=== PATIENT | female | born 1955 | race Caucasian/White ===

== ENCOUNTER 2017-06-26 16:09 | Inpatient (IN) | payer BC ==
[2017-06-26] MEDS ORDERED: Lidocaine 2% VISCOUS* 15 ML UDC PO ONE (16:28)
[2017-06-26] MEDS ORDERED: Al Hydrox/Mg Hydrox/Simet LIQ* 30 ML UDC PO ONE (16:28)
[2017-06-26 16:54] LABS: ABS Basophils 0.1 10^3/ul (0-0.2); ABS Eosinophils 0.1 10^3/ul (0-0.6); ABS Lymphocytes 0.6 10^3/ul (1.0-4.8); ABS Monocytes 0.3 10^3/ul (0-0.8); ABS Neutrophils 4.2 10^3/ul (1.5-7.7); ABS Nucleated RBC 0 10^3/ul; Eosinophil % 2.4 % (0-6); Hematocrit 41 % (35-47); Hemoglobin 13.3 g/dl (12.0-16.0); Lymphocyte % 11.2 % (25-47); Mean Corpuscular HGB Conc 33 g/dl (31-36); Mean Corpuscular Hemoglobin 28 pg (27-31); Mean Corpuscular Volume 86 fL (80-97); Mean Platelet Volume 9 um3 (7.4-10.4); Nucleated Red Blood Cells % 0.1; Platelet Count 301 10^3/ul (150-450); Red Blood Count 4.71 10^6/ul (4.0-5.4); Red Cell Distribution Width 14 % (10.5-15); White Blood Count 5.4 10^3/ul (3.5-10.8)
--- NOTE | 2017-06-26 17:10 | RAD ---
INDICATION: Chest pain. COMPARISON: There are no prior studies available for comparison. TECHNIQUE: Dual-energy PA and lateral views of the chest were obtained. FINDINGS: The heart is within normal limits in size. The lungs are underinflated. There are small bibasilar infiltrates. No pleural effusion is seen. The patient appears to be status post left axillary node dissection. IMPRESSION: LOW LUNG VOLUMES, SMALL BIBASILAR INFILTRATES.
[2017-06-26 17:12] LABS: EGFR Non-African American 65.8 (>60)
[2017-06-26] MEDS ORDERED: Aspirin TAB* 325 MG PO ONE (17:30)
[2017-06-26] MEDS ORDERED: Insulin REGULAR(*) 1 UNITS UNIT SUBCUT ONE (17:30)
[2017-06-26] MEDS ORDERED: Acetaminophen TAB* 325 MG PO PRN (18:00)
[2017-06-26] MEDS ORDERED: Temazepam CAP* 15 MG PO PRN (18:00)
[2017-06-26] MEDS ORDERED: Morphine INJ* 2 MG/ML 1 ML CARPUJECT IV PRN (18:00)
[2017-06-26] MEDS ORDERED: Dextrose 50% Syringe 50 ML* 25 GM/50 ML SYRINGE IV PUSH PRN (18:03)
[2017-06-26] MEDS: NS 0.9% 1000 ML* 1,000 ML IV SCH (19:51)
[2017-06-26] MEDS: Insulin GLARGINE(*) 1 UNITS UNIT SUBCUT SCH (20:33)
[2017-06-26] MEDS: Insulin LISPRO* 1 UNITS UNIT SUBCUT SCH (20:34)
[2017-06-26] MEDS: Heparin VIAL(*) 5000 UNITS/ML VIAL (FIVE THOUSAND) SUBCUT SCH (20:35)
[2017-06-26] MEDS ORDERED: Tobramycin 0.3% OPHTH.OINT* 3.5 GM TUBE (OPTH OINTMENT) BOTH EYES SCH (21:00)
--- NOTE | 2017-06-26 21:41 | HP ---
ADDENDUM FOR MEDICATIONS NOW INCLUDED ON THIS REPORT CC: Dr. Rivero * HISTORY AND PHYSICAL: DATE OF ADMISSION: 06/26/17 PRIMARY CARE PROVIDER: Dr. Rivero from [facility]. CHIEF COMPLAINT: Chest pain. HISTORY OF PRESENT ILLNESS: Ms. Thomas is a 62-year-old female with history of diabetes and hypertension who was seen by Dr. Rivero today with complaints of chest pains that are exertional and had been going on for a couple of weeks. The patient also stated that she had not been able to fill her insulin and her oral hypoglycemics for the past 3 to 4 weeks. She just got to know from her insurance company that she needs to fill her medications at [facility] to be able to have them covered by the insurance. She stated that she will be able to fill those medications now, but she just got the letter today. The patient is going to be placed on overnight observation with the diagnosis of chest pain to rule out ischemia. PAST MEDICAL HISTORY: 1. History of bilateral breast cancer, status post lumpectomy, chemo and radiation with residual left-sided lymphedema in left upper and left lower extremity. 2. History of nephrolithiasis. 3. Status post appendectomy. 4. History of hypertension. ALLERGIES: The patient is allergic to PEANUTS. FAMILY HISTORY: Positive for mother who at the age of 79 secondary to heart disease, father who in his 70s secondary to heart disease. SOCIAL HISTORY: The patient denies any tobacco, alcohol or drug use. Surrogate decision making person is her brother, Antoine Thomas. 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 REVIEW OF SYSTEMS: Please see history of present illness. The patient stated that she has chronic left lymphedema on the left upper and left lower extremity ever since her breast surgery that had been ongoing for several years. She noticed dyspnea on exertion and substernal chest pain that she describes as "ache." Chest pain is not pleuritic and currently patient is chest pain free. The pain occurs only when she is walking or performs moderate exercise. The remaining 12 systems were reviewed with the patient and were otherwise negative. PHYSICAL EXAMINATION GENERAL: The patient is a very pleasant 62-year-old female with a BMI of 35. Patient is not in acute distress. Alert, awake, and oriented x3. VITAL SIGNS: Blood pressure 139/78, heart rate of 82 and regular, respiratory rate 18, oxygen saturation 98% on room air, temperature 98.2. HEENT: Head: Atraumatic and normocephalic. Eyes: Pupils are equal, round, and reactive to light and accommodation. Oropharynx clear. Mucosa moist. NECK: Supple. No JVD. No bruits bilaterally. RESPIRATORY: Clear to auscultation bilaterally. CARDIOVASCULAR: Regular rate and rhythm. No murmur. ABDOMEN: Soft, nontender. Bowel sounds present in all 4 quadrants. EXTREMITIES: There is bilateral leg edema, left definitely larger than right. It is pitting. There is no clubbing and no cyanosis. The left leg has also slight erythema on the anterior aspect of the distal lower extremity possibly related to venostasis and not cellulitis. The left hand is mildly edematous. NEUROLOGIC: Speech clear. Cranial nerves II through XII grossly intact. Motor strength is 5/5 bilaterally. SKIN: On evaluation of the skin, apart from the above mentioned, no rashes or ecchymotic areas noted. PSYCHIATRIC: On evaluation oriented x3 with no evidence of anxiety or depression. DIAGNOSTIC STUDIES/LAB DATA: Showed white blood cell count 5.4, hemoglobin 13.3, hematocrit 41, and platelets of 301. Sodium 133, potassium 4.4, chloride 98, carbon dioxide 28, BUN 13, creatinine 0.87. Liver function tests were unremarkable. There was mild elevation of alkaline phosphatase of 131. Troponin was 0.01. The patient's EKG showed sinus bradycardia with a heart rate of 46 beats per minute with negative T waves in lead III and AVF and no other abnormalities. The patient's portable chest x-ray showed impression: "Low lung volume. No evidence of any infiltrates." ASSESSMENT AND PLAN: 1. In regards to the patient's exertional chest pain, the patient is wanting to be placed for overnight observation with followup troponins. She is going to undergo cardiac stress test on a treadmill, Myoview, if her troponins continue to be negative. 2. In regards to the patient's uncontrolled diabetes, her hemoglobin A1c is going to be obtained. The patient is going to be placed on insulin sliding scale and low dose of insulin Lantus. The patient stated that she will be able to have her medications filled with [facility] from now on. I will also hold patient's metformin. I am not sure if she should be ever taking Actos with her history of heart disease in the family. 3. In regards to the possibility of dyslipidemia and evaluation for that, lipid profile is going to be obtained in the morning. 4. For DVT prophylaxis, the patient is going to be placed on heparin subcutaneously. 5. In regards to patient's chronic lymphedema in left lower extremity and left upper extremity, I recommended ASTRID compression stockings, which the patient tried in the past and stated that she could not tolerate it. 6. The patient's code status is full and her surrogate is her brother. TIME SPENT: Approximately 55 minutes was spent on admission of this patient, more than half of that time was spent [id number] with the patient during the interview and physical exam. ADDENDUM: Includes the patient's medication list at admission and those are: 1. Actos 45 mg daily. 2. Metformin 1000 mg b.i.d. 3. Lisinopril 20 mg daily. 4. Insulin Levemir 80 units in the morning and 20 at night. Please also note that the patient stated that her diabetic medications she has not used for the past 3 to 4 weeks. [id number]/CPS #: [id number]/CPS #: [id number] LAURA
[2017-06-27] MEDS: Heparin VIAL(*) 5000 UNITS/ML VIAL (FIVE THOUSAND) SUBCUT SCH ×2 (05:57→14:07)
[2017-06-27 06:29] LABS: ABS Basophils 0.1 10^3/ul (0-0.2); ABS Eosinophils 0.1 10^3/ul (0-0.6); ABS Lymphocytes 0.9 10^3/ul (1.0-4.8); ABS Monocytes 0.4 10^3/ul (0-0.8); ABS Neutrophils 2.7 10^3/ul (1.5-7.7); ABS Nucleated RBC 0 10^3/ul; Eosinophil % 3.4 % (0-6); Hematocrit 35 % (35-47); Hemoglobin 11.8 g/dl (12.0-16.0); Lymphocyte % 22.6 % (25-47); Mean Corpuscular HGB Conc 34 g/dl (31-36); Mean Corpuscular Hemoglobin 29 pg (27-31); Mean Corpuscular Volume 85 fL (80-97); Mean Platelet Volume 9 um3 (7.4-10.4); Nucleated Red Blood Cells % 0; Platelet Count 232 10^3/ul (150-450); Red Blood Count 4.11 10^6/ul (4.0-5.4); Red Cell Distribution Width 14 % (10.5-15); White Blood Count 4.2 10^3/ul (3.5-10.8)
[2017-06-27] MEDS: Insulin LISPRO* 1 UNITS UNIT SUBCUT SCH ×4 (07:21→21:43)
[2017-06-27] MEDS: Lisinopril TAB* 10 MG PO SCH (09:38)
[2017-06-27] MEDS: NS 0.9% 1000 ML* 1,000 ML IV SCH (09:39)
[2017-06-27] MEDS ORDERED: Metoprolol Tartrate IV* 1 MG/ML 5 ML VIAL ONE (11:08)
--- NOTE | 2017-06-27 12:44 | RAD ---
HISTORY: Chest pain, diabetes, hypertension COMPARISONS: None TECHNIQUE: A 1 day stress/rest myocardial perfusion study was performed, with exercise stress. The exercise portion was performed using the Yobani protocol, for a total METs of 4.6. The exercise portion was stopped due to sustained wide complex tachycardia. The stress portion was monitored by Dr. Nolasco. Gated SPECT imaging was performed, with CT-based attenuation correction DOSE: Stress: Technetium 99m tetrofosmin, 26.38 millicuries, injected at 11:07 AM on June 27, 2017 Rest: Technetium 99m tetrofosmin, 10.98 millicuries, injected at 8:46 AM on June 27, 2017 Pharmacologic agent: None FINDINGS: CARDIAC MONITORING: Peak heart rate of 219 bpm, 189% of predicted EF: 63% TID: 1.17 MOTION: There is mild dyskinesia. PERFUSION: There are no fixed or reversible perfusion defects. OTHER: None IMPRESSION: NO DEFINITE FIXED OR REVERSIBLE PERFUSION DEFECTS. ASSESSMENT: LOW RISK. Based on imaging criteria from ACC/AHA 2002. Guideline Update for the Management of Patient's with Chronic Stable Angina, table 23. Noninvasive Risk Stratification. CPT II Codes: 0711B8P
--- NOTE | 2017-06-27 16:15 | PN ---
Subjective Date of Service: 06/27/17 Interval History: Pt had a stress test and got in a. fib with RVR and wide complex tachycardia that as per Dr. Nolasco is likely a. fib with aberrancy now back in NSR, feels well, denies CP Objective Active Medications: Acetaminophen (Tylenol Tab*) 650 mg PO Q4H PRN PRN Reason: FEVER/PAIN Dextrose (D50w Syringe 50 Ml*) 12.5 gm IV PUSH .FOR FS < 60 - SS PRN PRN Reason: FS < 60 Heparin Sodium (Porcine) (Heparin Vial(*)) 5,000 units SUBCUT Q8HR [facility] Last Admin: 06/27/17 14:07 Dose: 5,000 units Sodium Chloride (Ns 0.9% 1000 Ml*) 1,000 mls @ 75 mls/hr IV PER RATE [facility] Last Admin: 06/27/17 09:39 Dose: 75 mls/hr Insulin Glargine (Lantus(*)) 30 units SUBCUT Q24H [facility] Last Admin: 06/26/17 20:33 Dose: 30 units Insulin Human Lispro (Humalog*) 0 units SUBCUT ACHS [facility] PRN Reason: Protocol Last Admin: 06/27/17 12:34 Dose: Not Given Lisinopril (Prinivil Tab*) 20 mg PO DAILY [facility] Last Admin: 06/27/17 09:38 Dose: 20 mg Metoprolol Tartrate (Lopressor Tab*) 12.5 mg PO Q12HR [facility] Morphine Sulfate (Morphine Inj (Syringe)*) 2 mg IV Q4H PRN PRN Reason: PAIN Temazepam (Restoril Cap*) 15 mg PO BEDTIME PRN PRN Reason: INSOMNIA Oxygen Devices in Use Now: None Appearance: 62 yo f in NAD, AAOx3 Eyes: No Scleral Icterus, PERRLA Ears/Nose/Mouth/Throat: NL Teeth, Lips, Gums, Mucous Membranes Moist Neck: NL Appearance and Movements; NL JVP, Trachea Midline Respiratory: Symmetrical Chest Expansion and Respiratory Effort, Clear to Auscultation Cardiovascular: NL Sounds; No Murmurs; No JVD, RRR Abdominal: NL Sounds; No Tenderness; No Distention, No Hepatosplenomegaly Lymphatic: No Cervical Adenopathy Extremities: No Edema, No Clubbing, Cyanosis Skin: No Rash or Ulcers, No Nodules or Sclerosis Neurological: Alert and Oriented x 3, NL Muscle Strength and Tone Result Diagrams: 06/27/17 06:10 06/27/17 06:10 Assess/Plan/Problems-Billing Assessment: 62 yo F with h/o HTN, DM2 presents with exertional CP - Patient Problems (1) Chest pain Comment: alvin related to A. fib which was noted during exercise today. Appreciate Dr. Nolasco's consult. will place pt on low dose lopressor and tritrate stress test "low risk" (2) Wide-complex tachycardia Comment: Dr. Nolasco discussed the case with EP specialit who noted that alvin pt has a. fib with abberancy. cont telem Pt aslo has episodes of sinus bradycardia with PAC's (3) DM2 (diabetes mellitus, type 2) Comment: cont Lantus and ISS HbA1C 9-due to noncompliance in the past month (4) DVT prophylaxis Comment: Pt agreed to Xarelto for antocoagulation(CHADS Vasc2 score is 3) Status and Disposition: OBV will be switched to inpatient due to need to hospitalization x at least another day
[2017-06-27] MEDS ORDERED: Perflutren Lipid Microsphere* 3 ML VIAL ONE (16:51)
[2017-06-27] MEDS: Rivaroxaban TAB(*) 20 MG TAB PO SCH (17:35)
--- NOTE | 2017-06-27 18:33 | CONS ---
CC: Dr. Rivero, [place], [place] * CARDIOLOGY CONSULTATION: DATE OF CONSULT: 06/27/17 REASON FOR CONSULT: The patient with history of exertional chest discomfort with abnormal stress test, development of wide complex tachycardia/atrial fibrillation, assess cardiac status. HISTORY OF PRESENT ILLNESS: The patient is a pleasant 62-year-old female with a history of diabetes and hypertension, who states that over the past several weeks she has noted that when she would exert herself more than usual, generally when at work and walking very fast, she will develop a weird sensation feeling where she gets woozy and then will notice perhaps mild chest pressure. She clearly states the wooziness comes on first before the chest discomfort. There is no profound shortness of breath, nausea, vomiting, or diaphoresis. She has not had any syncopal or near syncopal episode with it. What she does is slow down and eventually over time it goes away. It has never happened at rest. She was admitted to the hospital with these symptoms and interestingly she states that she was concerned whether or not it could have been precipitated by her not having her diabetes medication because of insurance switch. She was taking her hypertension medication. She denies any history of underlying lung disease, but does admit she snores significantly; she has no way of knowing whether or not she has any sleep apnea. Her cardiac risk factors include essential hypertension as well as diabetes mellitus. She does not smoke. She has no family history of early coronary artery disease, but later in life, had a mother who at 79 and a father who in the 70s. She denies any known history of increased cholesterol. PAST MEDICAL HISTORY: Includes bilateral breast cancer, status post lumpectomy , chemotherapy and radiation with residual left-sided lymphedema in the left upper and lower extremity; history of nephrolithiasis; history of appendectomy; history of hypertension; history of diabetes. ALLERGIES: She is allergic to PEANUTS. SOCIAL HISTORY: She denies any tobacco, alcohol, or drug usage. She works at [employer] in the [employer] department. REVIEW OF SYSTEMS: As per the H and P with no additional changes. Exercise stress test performed today. She was exercised by standard Yobani protocol only to 1 minute and 19 seconds achieving 4 METs at which point she developed wide- complex tachycardia with heart rates in the 180s. It was interesting in that it intermittently without any slowing or pause would develop narrow complex as well. The EKG looked like a left bundle branch pattern when she was tachycardic with wide complex. On stopping and with eventual converting to normal sinus rhythm, she had no EKG changes definitive for ischemia throughout the recovery period. Nuclear images were read with no significant ischemia with normal ejection fraction. Interestingly, when she had the sustained tachycardia, and into recovery for a period of time, she denied any significant wooziness or lightheadedness or chest discomfort. PHYSICAL EXAM: When I see her, reveals pleasant female. Blood pressure 133/67 with a pulse of 67 and regular, respirations 16, O2 saturation 97% on room air, afebrile. Neck is supple. No increased JVP. Carotid with good upstroke and volume without bruits. Conjunctivae are pink. Sclerae are clear. Mouth reveals moist mucosa. Lungs revealed no accessory muscle usage. There is good excursion. Lungs are relatively clear to A and P. Heart reveals no visible heaves, no palpable heaves or thrills. Normal S1, S2. Heart sounds are distant in nature due to left chest size. Abdomen is obese, soft, nontender, without definitive organomegaly. Extremities are heavy in nature bilaterally. There is left lymphedema noted in the upper arm. Peripheral pulses are intact. Femoral pulses noted without bruits. Neuro: The patient is alert and oriented with normal mentation. Musculoskeletal: The patient moves all extremities appropriate and had a normal gait on the stress test. Psychological : The patient with normal affect. DIAGNOSTIC STUDIES/LAB DATA: Laboratory results today revealed admission BUN and creatinine of 13 and 0.8 with potassium of 4.4, glucose was 399. Her hemoglobin A1c was 9.0. SGOT 12, SGPT 17, alkaline phosphatase 131. Troponin was 0.01, 0.00, 0.00 respectively. Total cholesterol was 131, LDL 63, HDL 48, triglycerides 97. Hemoglobin and hematocrit on admission were 13.3 and 41 with a platelet count of 301,000, white count 5400. Chest x-ray report on admission revealed low volume lung, possible small basilar infiltrates versus poor inspiratory effort. EKG on admission on 06/26/17 revealed sinus bradycardia, heart rate 46. A question of potential atrial bigeminy is raised on this EKG, which indeed would then not make the heart rate as bradycardic. There are no acute ST-T wave changes. OVERALL ASSESSMENT: Cristina now presents with exercise-induced arrhythmias. I had a discussion with Dr. Aly Kelsey regarding this and at this point time, we will try low-dose beta mikki increasing it as tolerates. We will also do a pulse ox overnight test on her to see if she has sleep apnea. We will get a 2D echo as well. Ideally, if we can titrate beta mikki up hopefully, we can avoid having to try to do ablation therapy on her. I will also order a TSH on her for completion sake. We will await the echocardiogram results. Thank you very much for allowing us to participate in her care. [id number]/[facility] #: [id number] LAURA
--- NOTE | 2017-06-27 19:07 | ECHO ---
Patient: ALIYAH NAVARRO [facility] Rec#: [id number] : 1955 Date: 06/27/2017 Age: 62y Height: 160.02 cm / 63.0 in Weight: 89.36 kg / 196.9 lbs Sex: F BSA: 1.92 Room#: [facility] Admit Date#: 06/27/2017 Type: Inpatient Referring: Adele Millan MD Reading: Sarah Hawley MD Mangle Roller: Elinor MoyerDANIELLE Transthoracic Echocardiogram Indication: Chest pain, new A-fib BP: 133/67 HR: 44 Rhythm: Bradycardia Findings History: HTN, DM, bilateral breast cancer with chemotherapy and radiation. Technical Comments: The study quality is fair. The study is technically limited due to poor parasternal windows. Completed at 1745. Left Ventricle: The left ventricular chamber size is normal. Mild concentric left ventricular hypertrophy is observed. Global left ventricular wall motion and contractility are within normal limits. There is normal left ventricular systolic function. The estimated ejection fraction is 55-60%. Normal left ventricular diastolic filling is observed. Left Atrium: The left atrium is mildly dilated. Right Ventricle: The right ventricle is mildly dilated. The right ventricular global systolic function is normal. Right Atrium: The right atrium is moderately dilated. Aortic Valve: The aortic valve is trileaflet. The aortic valve leaflets are mildly thickened. There is a trace of aortic regurgitation. There is no evidence of aortic stenosis. Mitral Valve: There is posterior mitral annular calcification. The mitral valve leaflets are mildly thickened. There is a trace of mitral regurgitation. There is no evidence of mitral stenosis. Tricuspid Valve: The tricuspid valve leaflets are normal. There is mild tricuspid regurgitation. The right ventricular systolic pressure is estimated at 44 mmHg. There is evidence of mild to moderate pulmonary hypertension. There is no tricuspid stenosis. Pulmonic Valve: The pulmonic valve appears normal. There is a trace pulmonic regurgitation. There is no pulmonic stenosis. Pericardium: There is no significant pericardial effusion. A pericardial fat pad is visualized. Aorta: There is mild dilatation of the ascending aorta. There is no dilatation of the aortic arch. There is no dilation of the aortic root. Pulmonary Artery: The main pulmonary artery appears normal. Venous: The inferior vena cava is dilated. There is a greater than 50% respiratory change in the inferior vena cava dimension. Contrast: Definity was used to optimize study. 3 mL of diluted Definity was utilized. Intravenous contrast was used to enhance endocardial border definition. Summary: There was not any prior study for comparison. Conclusions The left ventricular chamber size is normal. Mild concentric left ventricular hypertrophy is observed. The estimated ejection fraction is 55-60%. The left atrium is mildly dilated. The right atrium is moderately dilated. There is a trace of aortic regurgitation. There is a trace of mitral regurgitation. There is mild tricuspid regurgitation. There is evidence of mild to moderate pulmonary hypertension. There is a trace pulmonic regurgitation. There is mild dilatation of the ascending aorta. Measurements Name Value Normal Range RVIDd (AP) 2D 3.3 cm (0.9 - 2.6) RVDdMajor (2D) 4.6 cm (2.2 - 4.4) RAd ISD 4CH 5.5 cm (3.4 - 4.9) RA (A4C)W 3.9 cm (2.9 - 4.6) IVSd (2D) 1.2 cm (0.6 - 1) LVPWd (2D) 1.1 cm (0.6 - 1) LVIDd (2D) 3.8 cm (3.6 - 5.4) LVIDs (2D) 2.3 cm - LV FS (2D) 41 % (25 - 45) Aortic Annulus 1.8 cm (1.4 - 2.6) Ao root diameter (2D) 3.4 cm (2.1 - 3.5) Ascending Ao 3.8 cm (2.1 - 3.4) Aortic arch 2.8 cm (1.8 - 3.4) LA dimension (AP) 2D 4 cm (2.3 - 3.8) LAd ISD 4CH 5.9 cm (2.9 - 5.3) LA ISD 4CH W 4.6 cm (2.5 - 4.5) Name Value Normal Range LA ESV SP 4CH (A/L) 71 ml - LA ESV SP 2CH (A/L) 74 ml - LA ESV BP (A/L) 73 ml - LA ESV BP (A/L) index 38 ml/m2 - LA ESV SP 4CH (MOD) 65 ml - LA ESV SP 2CH (MOD) 68 ml - Name Value Normal Range MV E-wave Vmax 1.4 m/sec - MV deceleration time 169.5 msec - MV A-wave Vmax 1.17 m/sec - MV E:A ratio 1.2 ratio - LV septal e' Vmax 0.13 m/sec - LV lateral e' Vmax 0.12 m/sec - LV E:e' septal ratio 10.77 ratio - LV E:e' lateral ratio 11.67 ratio - Name Value Normal Range AV Vmax 1.47 m/sec - AV VTI 27.5 cm - AV peak gradient 8.64 mmHg - AV mean gradient 4.51 mmHg - LVOT Vmax 1.11 m/sec - LVOT VTI 26.66 cm - LVOT peak gradient 4.97 mmHg - LVOT mean gradient 2.53 mmHg - COREY Vmax 1.07 m/sec - Name Value Normal Range TR Vmax 2.9 m/sec - TR peak gradient 34 mmHg - RAP 8 mmHg - RVSP 44 mmHg - IVC diameter 2.3 cm - Name Value Normal Range PV Vmax 1.02 m/sec - PV peak gradient 4.23 mmHg -
[2017-06-27] MEDS: Metoprolol Tartrate TAB* 25 MG PO SCH (19:35)
[2017-06-27] MEDS: Insulin GLARGINE(*) 1 UNITS UNIT SUBCUT SCH (19:36)
[2017-06-28] MEDS: NS 0.9% 1000 ML* 1,000 ML IV SCH ×2 (02:15→02:17)
[2017-06-28] MEDS: Insulin LISPRO* 1 UNITS UNIT SUBCUT SCH ×2 (07:17→12:40)
[2017-06-28] MEDS: Lisinopril TAB* 10 MG PO SCH (09:25)
[2017-06-28] MEDS: Rivaroxaban TAB(*) 20 MG TAB PO SCH (09:25)
[2017-06-28] MEDS: Metoprolol Tartrate TAB* 25 MG PO SCH (09:25)
[2017-06-28 14:15] VITALS: BP 134/69
--- NOTE | 2017-06-28 21:18 | HP ---
HISTORY AND PHYSICAL: ADDENDUM: Includes the patient's medication list at admission and those are: 1. Actos 45 mg daily. 2. Metformin 1000 mg b.i.d. 3. Lisinopril 20 mg daily. 4. Insulin Levemir 80 units in the morning and 20 at night. Please also note that the patient stated that her diabetic medications she has not used for the past 3 to 4 weeks. [id number]/[facility] #: [id number] [facility]
--- NOTE | 2017-06-29 11:53 | DS ---
CC: Dr. Rivero; Dr. Nolasco; Dr. Hawley * DISCHARGE SUMMARY: DATE OF ADMISSION: 06/26/17 DATE OF DISCHARGE: 06/28/17 PRIMARY CARE PROVIDER: Dr. Rivero. DISCHARGE DIAGNOSES: 1. Chest pain and lightheadedness while exercise due to paroxysmal atrial fibrillation. Please also note that the patient has history of atrial fibrillation with aberrancy that looks like ventricular tachycardia. 2. Uncontrolled diabetes. SECONDARY DIAGNOSES: 1. Hypertension. 2. Diabetes. 3. History of bilateral breast cancer, status post lumpectomy. 4. History of nephrolithiasis. 5. History of appendectomy. MEDICATIONS AT DISCHARGE: Include: 1. Insulin detemir 20 units at bedtime, 80 in the morning. 2. Lisinopril 20 mg daily. 3. Metformin 1000 mg b.i.d. 4. Metoprolol succinate 25 mg daily. 5. Actos 45 mg daily. 6. Xarelto 20 mg daily. LABORATORY DATA: Studied performed during the hospital stay include: On : White blood cell of 4.2, hemoglobin of 11.8, hematocrit of 35 and platelets 232. Sodium 137, potassium 3.9, chloride 105, carbon dioxide 26, BUN 12, creatinine 0.6. Liver function tests were unremarkable on admission apart form alkaline phosphatase of 131. Lipid profile showed triglycerides of 97, total cholesterol of 131, LDL of 63 and HDL of 48. TSH was 4.14. Cardiac stress test obtained on 06/27/17, the treadmill portion, conclusion, "development of tachycardic rhythm at times with wide QRS complexes sustained, probably atrial fibrillation with aberrancy, less likely ventricular tachycardia." The nuclear portion of the stress test showed "low risk with no definitive fixed or reversible perfusion defects with mild dyskinesia and EF of 63%." Overnight pulse oximetry showed time with oxygen saturation below 89% of 1 minute 28 seconds, it was 0.3%. CONSULTATIONS DURING THE HOSPITAL STAY: Included Dr. Nolasco and Dr. Hawley from Cardiology. HOSPITALIZATION COURSE: Cristina Thomas is a 62-year-old female with history of diabetes with recent noncompliance with treatment due to problems with medication coverage. The patient presented complaining of exertional chest pain and occasional episodes of feeling newly lightheaded when exercising. She was placed on observation initially and then placed on full admit. Her initial cardiac stress test showed no ischemia on the nuclear portion. The treadmill portion was performed by Dr. Nolasco and was noted that patient went into rapid atrial fibrillation, and also wide ventricular tachycardia. Dr. Nolasco discussed it with his colleague supervisor cutting and sewing room and confirmed that it is likely atrial fibrillation with aberrancy and not ventricular tachycardia. The recommendation was to place patient on beta mikki and observe. The patient was placed on metoprolol 12.5 mg b.i.d. and she did well. She had occasional episodes of sinus bradycardia, which she actually had even before starting the beta mikki, but those were asymptomatic. Prior to discharge, patient ambulated with no recurrence of atrial fibrillation or atrial fibrillation with aberrancy. She was in sinus tachycardia which was appropriate to the level of exercise. On the day of discharge, patient was seen by Dr. Hawley. The patient is going to be discharged on Toprol-XL at 25 mg daily. The patient was also educated on the need of anticoagulation due to CHADS-VASc score being at 3. After discussion about novel anticoagulants as well as Coumadin, the patient requested to be placed on one of the novel anticoagulants. Xarelto was started prior to discharge and she tolerated well. At discharge, the patient was recommended to follow up with primary care provider in approximately 4 to 7 days. The patient is also asked to called Dr. Nolasco's office and request followup appointment. PHYSICAL EXAMINATION: Blood pressure 125/67, heart rate of 74 and regular, respiratory rate 16, oxygen saturation 100% on room air, temperature 98.9. General: A very pleasant 62-year-old female with a BMI of 34. The patient is on acute distress. Alert and awake and oriented x3. HEENT: Head: Atraumatic , normocephalic. Eyes: Pupils equal, round, and reactive to light and accommodation. Oropharynx clear. Mucosa moist. Neck: Supple. No JVD. No bruits bilaterally. Cardiovascular: Regular rate and rhythm. No murmur. Respiratory: Clear to auscultation bilaterally. Abdomen: Soft, nontender. Bowel sounds presents in all 4 quadrants. Extremities: There is no edema. Pulses +2 bilaterally. There is no clubbing, cyanosis. Neuro Evaluation: Speech clear. Cranial nerves II through XII grossly intact. Motor strength is 5 /5 bilaterally. Please note that this is a short summary of patient's hospitalization. Please refer to further medical records for details. TIME SPENT: Approximately 40 minutes were spent on patient's discharge. [id number]/[facility] #: [id number] LAURA
--- NOTE | 2017-06-29 12:48 | ED ---
Maikol Mckee Stephanie, scribed for Devyn Cruz MD on 06/26/17 at 1728 . HPI Chest Pain - HPI Summary HPI Summary: The pt is a 62 y/o F presenting to the ED with c/o CP that began this morning. The pt reports intermittent CP with exertion over the past few weeks. The pt states the CP occurs with exertion. She saw her PCP today and her glucose was extremely elevated. - History of Current Complaint Chief Complaint: EDChestPainROMI Time Seen by Provider: 06/26/17 16:28 Hx Obtained From: Patient Onset/Duration: Started Hours Ago - 12, Resolved Timing: Intermittent - with exertion Current Severity: None Pain Intensity: 0 Pain Scale Used: 0-10 Numeric Chest Pain Location: Diffuse Chest Pain Radiates: No Aggravating Factor(s): Exertion Alleviating Factor(s): Nothing Associated Signs and Symptoms: Positive: Chest Pain - Allergy/Home Medications Allergies/Adverse Reactions: Allergies Allergy/AdvReac Type Severity Reaction Status Date / Time peanut Allergy Mild Hives Verified 06/26/17 21:15 Home Medications: Home Medications Insulin Detemir (NF) [Levemir (NF)] 20 unit SUBCUT BEDTIME 06/26/17 [History Confirmed 06/26/17] Insulin Detemir (NF) [Levemir (NF)] 80 unit SUBCUT QAM 06/26/17 [History Confirmed 06/26/17] Lisinopril TAB* [Prinivil TAB 10 MG*] 20 mg PO DAILY 06/26/17 [History Confirmed 06/26/17] Pioglitazone TAB* [Actos TAB*] 45 mg PO DAILY 06/26/17 [History Confirmed ] metFORMIN* [Glucophage 1000 MG TAB *] 1,000 mg PO BID 06/26/17 [History Confirmed 06/26/17] PMH/Surg Hx/FS Hx/Imm Hx Sensory History: Denies: Hx Legally Blind, Hx Deafness EENT History: Denies: Hx Deafness - Surgical History Surgery Procedure, Year, and Place: None Infectious Disease History: No Infectious Disease History: Denies: Traveled Outside the [place] in Last 30 Days - Family History Known Family History: Positive: Unknown - Pt denies any family history - Social History Occupation: Employed Part-time Lives: Alone Alcohol Use: None Review of Systems Negative: Fever, Chills Negative: Erythema Negative: Sore Throat Positive: Chest Pain - with exertion Negative: Shortness Of Breath, Cough Negative: Abdominal Pain, Vomiting, Nausea Negative: dysuria, hematuria Negative: Myalgia, Edema Negative: Rash Neurological: Other - Negative: Weakness All Other Systems Reviewed And Are Negative: Yes Physical Exam - Summary Physical Exam Summary: Constitutional: Well-developed, Well-nourished, Alert. (-) Distressed Skin: Warm, Dry HENT: Normocephalic; Atraumatic Eyes: Conjunctiva normal Neck: Musculoskeletal ROM normal neck. (-) JVD, (-) Stridor, (-) Tracheal deviation Cardio: Rhythm regular, rate normal, Heart sounds normal; Intact distal pulses; The pedal pulses are 2+ and symmetric. Radial pulses are 2+ and symmetric. (-) Murmur Pulmonary/Chest wall: Effort normal. (-) Respiratory distress, (-) Wheezes, (-) Rales Abd: Soft, (-) Tenderness, (-) Distension, (-) Guarding, (-) Rebound Musculoskeletal: (-) Edema Lymph: (-) Cervical adenopathy Neuro: Alert, Oriented x3 Psych: Mood and affect Normal Triage Information Reviewed: Yes Vital Signs On Initial Exam: Initial Vitals Temp Pulse Resp BP Pulse Ox 98.2 F 82 18 139/78 100 06/26/17 16:11 06/26/17 16:11 06/26/17 16:11 06/26/17 16:11 06/26/17 16:11 Vital Signs Reviewed: Yes Diagnostics - Vital Signs Vital Signs Temp Pulse Resp BP Pulse Ox 06/26/17 16:11 98.2 F 82 18 139/78 100 - Laboratory Lab Results: Lab Results 06/26/17 Range/Units 16:38 WBC 5.4 (3.5-10.8) 10^3/ul RBC 4.71 (4.0-5.4) 10^6/ul Hgb 13.3 (12.0-16.0) g/dl Hct 41 (35-47) % MCV 86 (80-97) fL MCH 28 (27-31) pg MCHC 33 (31-36) g/dl RDW 14 (10.5-15) % Plt Count 301 (150-450) 10^3/ul MPV 9 (7.4-10.4) um3 Neut % (Auto) 78.9 (38-83) % Lymph % (Auto) 11.2 L (25-47) % Stewart % (Auto) 6.3 (1-9) % Eos % (Auto) 2.4 (0-6) % Baso % (Auto) 1.2 (0-2) % Absolute Neuts (auto) 4.2 (1.5-7.7) 10^3/ul Absolute Lymphs (auto) 0.6 L (1.0-4.8) 10^3/ul Absolute Monos (auto) 0.3 (0-0.8) 10^3/ul Absolute Eos (auto) 0.1 (0-0.6) 10^3/ul Absolute Basos (auto) 0.1 (0-0.2) 10^3/ul Absolute Nucleated RBC 0 10^3/ul Nucleated RBC % 0.1 Result Diagrams: 06/27/17 06:10 06/27/17 06:10 Lab Statement: Any lab studies that have been ordered have been reviewed, and results considered in the medical decision making process. - Radiology CXR Xray Interpretation: No Acute Changes Radiology Interpretation Completed By: Radiologist - LOW LUNG VOLUMES, SMALL BIBASILAR INFILTRATES. Chest Pain Course/Dx - Course Course Of Treatment: Pt had 2 weeks of intermittent exertional CP. Noncompliant to meds due to finances. Blood glucose reported at 400. PCP suggests admission for stress test. - Diagnoses Provider Diagnoses: Angina of effort, Uncontrolled diabetes mellitus Discharge - Discharge Plan Condition: Improved Disposition: ADMITTED TO [facility] The documentation as recorded by the Maikol hutchins Stephanie accurately reflects the service I personally performed and the decisions made by , Devyn Cruz MD.
== END 2017-06-28 14:46 | disposition home or self-care (01) | DRG 201 ==
LOC: ED 16:09 → MEDTELE 18:00 → OBSVTOIN 06-27 14:12
PROVIDERS: ADMIT Internal Medicine; ATTEND Internal Medicine
PROC: 4A12XM4 Monitoring of Cardiac Stress, External Approach (ICD-10-PCS; principal; 2017-06-27)
DX: I48.0 Paroxysmal atrial fibrillation (principal); I47.2 Ventricular tachycardia; I10 Essential (primary) hypertension; E11.65 Type 2 diabetes mellitus with hyperglycemia; G24.9 Dystonia, unspecified; I89.0 Lymphedema, not elsewhere classified; R00.1 Bradycardia, unspecified; Z91.010 Allergy to peanuts; Z85.3 Personal history of malignant neoplasm of breast; Z87.442 Personal history of urinary calculi; Z79.01 Long term (current) use of anticoagulants; Z91.14 Patient's other noncompliance with medication regimen; Z92.3 Personal history of irradiation; Z91.012 Allergy to eggs; Z79.4 Long term (current) use of insulin; Z82.49 Family history of ischemic heart disease and other diseases of the circulatory system
CPT/HCPCS: 36415; 71046; 78452; 80048; 80053; 80061; 83036; 83605; 84443; 84484; 85025; 93005; 93017; 93306; 94762; 99284; A9270-GY; A9502; C8929; G0378; J1644; J3490